=== PATIENT | female | born 1990 | race African-American/Black ===

== ENCOUNTER 2016-12-01 15:36 | Emergency (ER) | payer SELFPAY ==
[~2016-12-01] VITALS: Ht 165.1 cm; Wt 81.6 kg
[2016-12-01 15:55] VITALS: BP 112/73
[2016-12-01] MEDS ORDERED: DIPHTH,PERTUSS(ACELL),TET TOX 0.5 ML DISP.SYRIN. VAX IM ONE (16:15)
[2016-12-01] MEDS ORDERED: LIDOCAINE 1% / SOD BICARB 8.4% 20 ML VIAL. IJ ONE (16:15)
--- NOTE | 2016-12-01 16:58 | PHYS DOC ---
Past Medical History Past Medical History: No Pertinent History Past Surgical History: No Surgical History Alcohol Use: None Drug Use: None Adult General Chief Complaint Chief Complaint: LACERATION/AVULSION HPI HPI Patient is a 26 year old female who presents with left thumb laceration. Patient is right-handed. 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 Review of Systems Review of Systems Constitutional: Denies fever or chills [] Eyes: Denies change in visual acuity, redness, or eye pain [] HENT: Denies nasal congestion or sore throat [] Musculoskeletal: Denies back pain or joint pain [] Integument: left thumb laceration Neurologic: Denies headache, focal weakness or sensory changes [] Endocrine: Denies polyuria or polydipsia [] Current Medications Current Medications Current Medications Medications (Trade) Dose Ordered Sig/Asad Start Time Stop Time Status Last Admin Dose Admin Diphtheria/ Tetanus/Acell Pertussis (Boostrix) 0.5 ml ONCE ONCE 12/01/16 16:15 12/01/16 16:16 DC 12/01/16 16:43 0.5 ML Lidocaine/Sodium Bicarbonate (Buffered Lidocaine 1%) 20 ml 1X ONCE 12/01/16 16:15 12/01/16 16:16 DC 12/01/16 16:42 20 ML Allergies Allergies Allergies Coded Allergies Type Severity Reaction Last Updated Verified No Known Drug Allergies 12/01/16 No Physical Exam Physical Exam Constitutional: Well developed, well nourished, no acute distress, non-toxic appearance. [] HENT: Normocephalic, atraumatic, bilateral external ears normal, oropharynx moist, no oral exudates, nose normal. [] Skin: Left medial distal thumb with a laceration approximately 2 cm long. There is no tendon involvement. Full range of motion to the left thumb including flexion and extension of the left thumb. +2 left radial pulse. Adequate radial sensation to the left thumb. Cap refill less than 2 seconds the left thumb. Extremities: No tenderness, no cyanosis, no clubbing, ROM intact, no edema. [] Neurologic: Alert and oriented X 3, normal motor function, normal sensory function, no focal deficits noted. [] Psychologic: Affect normal, judgement normal, mood normal. [] Current Patient Data Vital Signs Vital Signs Date Time Temp Pulse Resp B/P (MAP) Pulse Ox O2 Delivery O2 Flow Rate FiO2 12/01/16 15:55 98.1 58 16 100 Room Air 98.1 EKG EKG [] Radiology/Procedures Radiology/Procedures Left thumb x-rays interpreted by Dr. Mullins were negative for any acute findings Indication: [] Left thumb laceration Procedure: The patient was placed in the appropriate position and anesthesia around the laceration was 1% buffered lidocaine. The area was then cleaned with 100 ML of normal saline and Betadine. The laceration was closed with 4 interrupted sutures using 4. 0 Ethilon. The laceration was covered with Band- Aid. Total repaired wound length: Approximately 2 cm long Other Items: none The patient tolerated the procedure well]. Complications: none Course & Med Decision Making Course & Med Decision Making Pertinent Labs and Imaging studies reviewed. (See chart for details) Patient is in the ED with left thumb laceration. Laceration was closed as noted in procedures. Provided wound care instructions as well as return precautions. Neosporin recommended to the area. Dragon Disclaimer Dragon Disclaimer This electronic medical record was generated, in whole or in part, using a voice recognition dictation system. Departure Departure Impression: Primary Impression: Laceration of left thumb Disposition: HOME, SELF-CARE Condition: STABLE Referrals: NO PCP (PCP) Follow-up with the emergency room or your doctor in 7-10 days for suture removal Patient Instructions: Fingertip Laceration Additional Instructions: You have left thumb laceration. Keep it clean and dry. Apply Neosporin to it twice a day. Monitor it for signs and symptoms of infection including increased redness, increased drainage, increased warmth or odor drainage from the laceration and return to the ED if they occur. Follow-up with your doctor or the emergency room in 7-10 days for suture removal Problem Qualifiers Primary Impression: Laceration of left thumb Encounter type: initial encounter Qualified Codes: S61.012A - Laceration without foreign body of left thumb without damage to nail, initial encounter VIDA CDEENO APRN Dec 01, 2016 16:58
--- NOTE | 2016-12-02 08:53 | RAD ---
Left thumb, 3 views, 12/01/2016: History: Injury, laceration No fracture or dislocation is identified. No radiopaque foreign body is evident in the soft tissues. IMPRESSION: No significant abnormality is detected.
== END 2016-12-01 17:03 | disposition home or self-care (01) ==
LOC: ER 15:36
DX: S61.012A Laceration without foreign body of left thumb without damage to nail, initial encounter (principal); W26.0XXA Contact with knife, initial encounter; Y93.89 Activity, other specified; Y99.8 Other external cause status; Y92.511 Restaurant or cafe as the place of occurrence of the external cause
CPT/HCPCS: 12001; 73140; 90471; 90715; 99284-25